=== PATIENT | male | born 2005 | race Two or more races ===

== ENCOUNTER 2023-09-30 20:55 | Emergency (ER) | payer OTHER ==
[~2023-09-30] VITALS: Ht 190.5 cm; Wt 72.6 kg
[2023-09-30] MEDS ORDERED: LIDOCAINE HCL 2%/EPINEPHRINE 20ML VIAL IJ STA (21:40)
[2023-09-30] MEDS ORDERED: LIDOCAINE HCL 1%/EPINEPHRINE 20ML VIAL IJ ONE (21:51)
== END 2023-09-30 23:41 | disposition home or self-care (01) ==
LOC: ER 20:56 → EMR PED 20:56
DX: S01.01XA Laceration without foreign body of scalp, initial encounter (principal); W18.30XA Fall on same level, unspecified, initial encounter; Y93.9 Activity, unspecified; Y92.9 Unspecified place or not applicable; Y99.9 Unspecified external cause status